=== PATIENT | female | born 1945 | race Caucasian/White ===

== ENCOUNTER 2017-11-28 10:20 | Outpatient (CLI) | payer MEDICARE ==
--- NOTE | 2017-11-28 12:08 | CT ---
CT ANGIO HEAD WITH AND WITHOUT CONTRAST: Technique: Multiple axial tomograms were obtained through the head without contrast. This was followe d by multiple tomograms obtained through the head with contrast enhancement arterial phase following angio protocol with multiplanar reconstructions and 3D post processing. Indication: Follow up aneurysm. Comparison: CT angio head studies performed 03-05-17 and 03-20-16. FINDINGS: Review of the noncontrast images shows no evidence of hemorrhage. No mass, edema, or infarct seen. Review of the CT angio study again shows aneurysmal dilatation involving the A2 segment of the right anterior cerebral artery. This sacular aneurysm appears stable and continues to measure approximately 5 mm. There is another small sacular aneurysm involving the distal right M1 segment of the right mid dle cerebral artery at the genu. This small aneurysm measures 3-4 mm in the sagittal plane and also a ppears stable. Cerebral arteries and basilar artery otherwise appear unremarkable and unchanged. Visu alized vertebral arteries are patent and unremarkable. The intracranial internal carotid arteries are unremarkable. IMPRESSION: 1. 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 POS: [facility]
== END 2017-11-28 10:21 | disposition home or self-care (01) ==
LOC: TBSIIMAG 10:20
PROVIDERS: ATTEND Neurological Surgery
DX: I67.1 Cerebral aneurysm, nonruptured (principal)
CPT/HCPCS: 70496

== ENCOUNTER 2018-04-14 19:30 | Outpatient (CLI) | payer MEDICARE | END 2018-04-14 19:31 | disposition home or self-care (01) | LOC: SLEEPLAB 19:30 | PROVIDERS: ATTEND Family Medicine | DX: G47.33 Obstructive sleep apnea (adult) (pediatric) (principal); G47.419 Narcolepsy without cataplexy; I49.1 Atrial premature depolarization; I49.3 Ventricular premature depolarization; I25.10 Atherosclerotic heart disease of native coronary artery without angina pectoris; I10 Essential (primary) hypertension | CPT/HCPCS: 95811 ==

== ENCOUNTER 2018-11-25 13:35 | Outpatient (CLI) | payer MEDICARE ==
[~2018-11-25 13:35] MED LIST: Iopamidol 370 76% 100 ML VIAL ONE
--- NOTE | 2018-11-25 16:04 | CT ---
CT ANGIOGRAM OF THE HEAD 11/25/18 HISTORY: Followup intracranial aneurysms. COMPARISON: 03/05/17, 11/28/17. TECHNIQUE: CT angiogram of the head is performed in the axial plane. Three dimensional reformatted images are brink bmitted for interpretation. FINDINGS: NONCONTRAST HEAD CT: No parenchymal hemorrhage. No extra-axial hematoma. No midline shift. Basilar cisterns are patent. B rain volume, age appropriate. Cortical cole-white matter differentiation is preserved. Ventricles and sulci are patent and symmetric. Adequate aeration of the sinuses and mastoid air cells . Calvarium is intact. No pathologic enhancement of the brain parenchyma. CT ANGIOGRAM: There is redemonstration of a saccular aneurysm measuring 0.4 cm anterior posterior x 0.7 cm mediolat eral x 0.5 cm craniocaudal. There has been slight interval increase since the most recent previous ex amination. Previously, this lesion measured 0.4 x 0.5 x 0.5 cm. There is a stable aneurysm at the ter mination of the right M1 segment measuring 0.4 cm. Previously, this aneurysm measured 0.4 cm as well. No additional aneurysms are appreciated. IMPRESSION: 1. Interval slight increase of an aneurysm involving the right A2 segment. 2. Stable right M1 terminus aneurysm. POS: [facility]
== END 2018-11-25 13:36 | disposition home or self-care (01) ==
LOC: TBSIIMAG 13:35
PROVIDERS: ATTEND Neurological Surgery
DX: I67.1 Cerebral aneurysm, nonruptured (principal)
CPT/HCPCS: 70496; 82565

== ENCOUNTER 2019-10-05 12:40 | Outpatient (CLI) | payer MEDICARE ==
--- NOTE | 2019-10-05 13:57 | MRI ---
MRI Lumbar Spine WO Con History: M 56.16 lumbar radicular pain. Comparison: Lumbar radiographs September 14, 2019 Findings: Exam is degraded due to extensive motion. No significant hydronephrosis. No definite aneury smal dilatation of the aorta. No marrow infiltrative process. Conus medullaris terminates near the mid L1 vertebral body. Levels are as follows: L1/L2: Mild degenerative disc space height loss. Mild facet arthropathy. No neural foraminal or spina l canal narrowing. L2/3: Moderate degenerative disc space height loss. Circumferential disc osteophyte complex. Mild hyp ertrophic facet arthropathy. Mild ligamentum flavum hypertrophy. Mild effacement of the ventral CSF space. Spinal canal measures 1 cm. L3/L4: Mild degenerative disc space height loss with circumferential disc osteophyte complex greatest in the subforaminal zones. Moderate hypertrophic facet arthrosis. Mild segment of the hypertrophy. The spinal canal measures approximately 8 mm. Moderate to severe bilateral neural foraminal narrowing with abutment of the exiting and traversing nerve roots. L4/L5: Moderate degenerative disc space height loss. Moderate hypertrophic facet arthropathy. Circumf erential disc osteophyte complex greatest in the subforaminal zones. Moderate bilateral neural foraminal narrowing. There is abutment of the exiting and traversing nerve roots. L5/S1: Moderate degenerative disc space height loss. Circumferential disc bulge. Moderate hypertrophi c facet arthropathy. Moderate to severe right and moderate left neural foraminal narrowing with abutment of both exiting and traversing nerve roots. Moderate distention of the urinary bladder. Impression: Advanced spondylosis as described with multilevel nerve root abutment and spinal canal na rrowing.
== END 2019-10-05 12:41 | disposition home or self-care (01) ==
LOC: TBSIIMAG 12:40
PROVIDERS: ATTEND Family Medicine
DX: M47.26 Other spondylosis with radiculopathy, lumbar region (principal); M48.061 Spinal stenosis, lumbar region without neurogenic claudication
CPT/HCPCS: 72148

== ENCOUNTER 2022-03-22 11:01 | Outpatient (CLI) | payer MEDICARE | END 2022-03-22 11:02 | disposition home or self-care (01) | LOC: CT 11:01 | PROVIDERS: ATTEND Neurological Surgery | DX: I67.1 Cerebral aneurysm, nonruptured (principal) | CPT/HCPCS: 70496; 82565 ==